=== PATIENT | female | born 1975 | race African-American/Black ===

== ENCOUNTER 2016-08-13 21:42 | Emergency (ER) | payer MEDICAID ==
[~2016-08-13] VITALS: Ht 165.1 cm; Wt 98.9 kg
[~2016-08-13 21:42] MED LIST: ABILIFY20 MG ORAL; ADVAIR 250-501 EACH INH; ALBUTEROL SULF8.5 GM INH; ATIVAN0.5 MG ORAL; AZITHROMYCIN250 MG ORAL; CIPROFLOXACIN500 M2 ORAL; CYCLOBENZAPRINE10 MG ORAL; HYDROCHLOROTHIA25 MG ORAL; IBUPROFEN200 MG ORAL; IBUPROFEN600 MG ORAL; LOMOTIL TABLET1 EAC1 PO; MACROBID100 MG ORAL; NITROSTAT0.4 M2 SL; NORCO 10/3251 EA ORAL; NORCO1 E1 ORAL; PEPCID20 MG ORAL; PREDNISONE10 MG ORAL; PROMETHAZI6.25 MG/1 ORAL; PROMETHAZINE-C118 M1 ORAL; PROTONIX40 MG ORAL; PROVENTIL HFA6.7 G1 INH; QUETIAPINE FUM200 MG ORAL; QVAR7.3 GM INH; ROBAXIN500 MG PO; SEROQUEL200 MG ORAL; TRAZODONE HCL150 MG ORAL; TYLENOL325 MG ORAL; TYLENOL650 MG/20. ORAL; ZOFRAN ODT4 MG ORAL; ZYRTEC10 MG ORAL
[2016-08-13 22:13] VITALS: BP 109/77
--- NOTE | 2016-08-13 22:14 | Emergency Room Report ---
History of Present Illness General Chief Complaint: General Complaint Source: Patient Present Illness [facility] This is a 41-year-old female with history of hypertension and CHF. She said she has CHF even though she was admitted here before and had a normal echocardiogram and normal BMP. She presents with chief complaint of tingling in her fingers and feet. Also with chest pain and shortness of breath for the last 2 days. Complaining of generalized pain. Pain is 10 out of 10. No nausea no vomiting. Nothing made it better and nothing made it worse. Admit to using cocaine 2 days ago. No other complaint. Allergies: Coded Allergies: PENICILLINS (Verified Allergy, Unknown, 09/23/15) Patient History Past Medical History: see triage record, old chart reviewed Past Surgical History: other Pertinent Family History: none Social History: Reports: drug use, smoking Last Menstrual Period: 2003 Now: No Immunizations: other Reviewed Nursing Documentation: PMH: Agreed, PSxH: Agreed Nursing Documentation-PMH Past Medical History: No History, Except For Hx Hypertension: Yes Hx Asthma: Yes Hx Cancer: Yes - BREAST CANCER Hx Gastrointestinal Problems: No Hx Neurological Problems: No Review of Systems Eye: Denies: blurred vision, eye pain ENT: Denies: ear pain, nose congestion, throat swelling Respiratory: Reports: shortness of breath, Denies: cough Cardiovascular: Reports: chest pain, Denies: palpitations Gastrointestinal: Denies: abdominal pain, diarrhea, nausea, vomiting Musculoskeletal: Denies: back pain, joint pain Skin: Denies: rash Neurological: Denies: headache, numbness Endocrine: Denies: increased thirst, increased urine Hematologic/Lymphatic: Denies: easy bruising All Other Systems: negative except mentioned in HPI Physical Exam Vital Signs Date Time Temp Pulse Resp B/P Pulse Ox O2 Delivery O2 Flow Rate FiO2 08/13/16 21:57 97.3 111 16 106/75 97 Room Air vitals with tachycardia Sp02 EP Interpretation: reviewed, normal General Appearance: well appearing, no apparent distress, alert, obese Head: normocephalic, atraumatic Eyes: bilateral eye EOMI, bilateral eye PERRL ENT: hearing grossly normal, normal pharynx Neck: full range of motion, supple, no meningismus Respiratory: chest non-tender, lungs clear, normal breath sounds Cardiovascular #1: regular rate, rhythm - hr 96, no murmur Gastrointestinal: normal bowel sounds, non tender, no mass, no organomegaly, no bruit, non-distended Musculoskeletal: back normal, gait/station normal, normal range of motion Neurologic: alert, oriented x3 Psychiatric: mood/affect normal Skin: warm/dry Medical Decision Making Diagnostic Impression: Primary Impression: Paresthesia and pain of both upper extremities Additional Impressions: Non-cardiac chest pain Cocaine abuse Amphetamine abuse UTI (urinary tract infection) Qualified Codes: N30.00 - Acute cystitis without hematuria Proteinuria Obesity (BMI 30-39.9) ER Course Is present with numbness. Most likely hyperventilation versus anxiety/panic attack from drug abuse. No evidence of ACS, PE, dissection. He sleeping comfortably. No evidence of CHF. Lab Results Impression labs unremarkable EKG Diagnostic Results Rate: normal, tachycardiac Rhythm: NSR ST Segments: no acute changes Rhythm Strip Diag. Results EP Interpretation: yes Rate: 96 Rhythm: NSR, no PVC's, no ectopy Chest X-Ray Diagnostic Results EP Interpretation: Yes Findings: no consolidation, no effusion, no pneumothorax, no acute cardiopulmonary disease Number of Views: 1 Last Vital Signs Date Time Temp Pulse Resp B/P Pulse Ox O2 Delivery O2 Flow Rate FiO2 08/13/16 21:57 97.3 111 16 106/75 97 Room Air Status: improved Disposition: HOME, SELF-CARE Condition: Stable Scripts Cephalexin* (KEFLEX*) 500 Mg Capsule 500 MG ORAL TID, #21 CAP 0 Refills Prov: FUAD BABB M.D. 08/13/16 Additional Instructions: Stop using drugs. Followup your Dr. in 2-3 days. Return if symptom worsen. FUAD BABB M.D. Aug 13, 2016 22:14
[2016-08-13] MEDS ORDERED: Ketorolac 30mg Inj IV ONE (22:15)
[2016-08-13 22:55] LABS: BASOPHILS % (AUTO) 0.7 % (0.0-2.0); EOSINOPHILS % (AUTO) 4.3 % (0.0-3.0); LYMPHOCYTES % (AUTO) 18.2 % (20.0-45.0); MEAN CORPUSCULAR HEMOGLOBIN 28.6 PG (27.0-31.0); MEAN CORPUSCULAR HGB CONC 32.8 G/DL (32.0-36.0); MEAN CORPUSCULAR VOLUME 87 FL (80-99); MEAN PLATELET VOLUME 6.8 FL (6.5-10.1); MONOCYTES % (AUTO) 4.1 % (1.0-10.0); NEUTROPHILS % (AUTO) 72.6 % (45.0-75.0); PLATELET COUNT 377 K/UL (150-450); RED BLOOD COUNT 4.01 M/UL (4.20-5.40); RED CELL DISTRIBUTION WIDTH 12.8 % (11.6-14.8); WHITE BLOOD COUNT 9.2 K/UL (4.8-10.8)
[2016-08-13 23:00] LABS: APPEARANCE,URINE CLEAR; KETONES,URINE 4+ (NEGATIVE); LEUKOCYTE ESTERASE ,URINE 1+ (NEGATIVE); NITRITE,URINE POSITIVE (NEGATIVE); PH,URINE 6 (4.5-8.0); PROTEIN,URINE 2+ (NEGATIVE); UROBILINOGEN,URINE 8 MG/DL (0.0-1.0)
[2016-08-13 23:07] LABS: AMORPHOUS SEDIMENT,UR FEW /LPF; BACTERIA,URINE MODERATE /HPF; ICTOTEST NEGATIVE; SQUAMOUS EPITHELIAL CELL,UR FEW /LPF (NONE/OCC)
[2016-08-13] MEDS ORDERED: cefTRIAXone 1 GM in NS 55 ML IVPB ONE (23:15)
[2016-08-13 23:26] LABS: TROPONIN I < 0.30 ng/mL (<=0.30)
[2016-08-13 23:29] LABS: ALANINE AMINOTRANSFERASE 50 U/L (3-33); ANION GAP 19 (5-15); ASPARTATE AMINO TRANSFERASE 49 U/L (5-40); CALCIUM 8.7 mg/dL (8.6-10.2); CARBON DIOXIDE 27 mEQ/L (20-30); CHLORIDE 96 mEQ/L (98-107); GLOMERULAR FILTRATION RATE > 60 mL/min (>60); HEMOLYSIS 39; POTASSIUM 3.5 mEQ/L (3.4-4.9); SODIUM 142 mEQ/L (135-145); TOTAL PROTEIN 7.1 g/dL (6.6-8.7)
[2016-08-13 23:39] LABS: CKMB 4.7 ng/mL (< 3.8)
[2016-08-13] MEDS ORDERED: KEFLEX500 MG ORAL (23:58)
[2016-08-14 00:23] VITALS: BP 122/85
[2016-08-14 00:35] VITALS: BP 122/85
--- NOTE | 2016-08-14 10:18 | Diagnostic Imaging Report ---
Indication: Dyspnea Comparison: 03/04/16 A single view chest radiograph was obtained. Findings: No definite infiltrate or pulmonary vascular congestion identified. The heart is enlarged. The bones are osteopenic. Impression: No acute disease
--- NOTE | 2016-08-17 23:45 | Cardiology Report ---
APPROVED REPORT EKG Measurement Heart [id number] Sinus tachycardia Possible Left atrial enlargement Nonspecific T wave abnormality Prolonged QT Abnormal ECG
== END 2016-08-14 00:35 | disposition home or self-care (01) ==
LOC: EMR 22:30
DX: R07.89 Other chest pain (principal); F15.10 Other stimulant abuse, uncomplicated; F14.10 Cocaine abuse, uncomplicated; N30.00 Acute cystitis without hematuria; R80.9 Proteinuria, unspecified; E66.9 Obesity, unspecified; Z68.36 Body mass index [BMI] 36.0-36.9, adult; Z88.0 Allergy status to penicillin; I10 Essential (primary) hypertension; J45.909 Unspecified asthma, uncomplicated; Z85.3 Personal history of malignant neoplasm of breast; F17.200 Nicotine dependence, unspecified, uncomplicated
CPT/HCPCS: 36415; 71010; 80053; 80300; 81003; 81025; 82550; 82553; 83880; 84484; 85025; 87086; 93005; 96360; 96374; 99284; J0696; J1885

== ENCOUNTER 2016-10-03 19:09 | Emergency (ER) | payer MEDICAID ==
[~2016-10-03] VITALS: Ht 162.6 cm; Wt 133.4 kg
[~2016-10-03 19:09] MED LIST changes: +KEFLEX500 MG ORAL
[2016-10-03 19:26] VITALS: BP 149/94
[2016-10-03] MEDS ORDERED: Ketorolac 30mg Inj IV ONE (19:45)
[2016-10-03 21:45] LABS: BASOPHILS % (AUTO) 0.9 % (0.0-2.0); EOSINOPHILS % (AUTO) 4.9 % (0.0-3.0); LYMPHOCYTES % (AUTO) 29.4 % (20.0-45.0); MEAN CORPUSCULAR HEMOGLOBIN 28.9 PG (27.0-31.0); MEAN CORPUSCULAR VOLUME 90 FL (80-99); MEAN PLATELET VOLUME 6.9 FL (6.5-10.1); MONOCYTES % (AUTO) 5.7 % (1.0-10.0); NEUTROPHILS % (AUTO) 59.1 % (45.0-75.0); PLATELET COUNT 375 K/UL (150-450); RED BLOOD COUNT 3.94 M/UL (4.20-5.40); RED CELL DISTRIBUTION WIDTH 13.6 % (11.6-14.8); WHITE BLOOD COUNT 8.3 K/UL (4.8-10.8)
[2016-10-03 21:54] LABS: ALANINE AMINOTRANSFERASE 41 U/L (3-33); ANION GAP 13 (5-15); ASPARTATE AMINO TRANSFERASE 19 U/L (5-40); CALCIUM 8.7 mg/dL (8.6-10.2); CARBON DIOXIDE 28 mEQ/L (20-30); CHLORIDE 102 mEQ/L (98-107); CREATININE 0.9 mg/dL (0.5-0.9); GLOMERULAR FILTRATION RATE > 60 mL/min (>60); HEMOLYSIS 3; SODIUM 143 mEQ/L (135-145); TOTAL PROTEIN 6.8 g/dL (6.6-8.7)
[2016-10-03 21:55] LABS: TROPONIN I < 0.30 ng/mL (<=0.30)
[2016-10-03 22:05] LABS: CKMB < 1.5 ng/mL (< 3.8)
[2016-10-03] MEDS ORDERED: CYCLOBENZAPRINE10 MG ORAL (22:19)
[2016-10-03] MEDS ORDERED: IBUPROFEN600 MG ORAL (22:19)
[2016-10-03 22:39] VITALS: BP 144/73
--- NOTE | 2016-10-03 22:46 | Emergency Room Report ---
History of Present Illness General Chief Complaint: Chest Pain Source: Patient, Medical Record Present Illness HPI 41-year-old female presents ED for evaluation. Patient states she is having generalized bodyaches muscle spasms. Notes pain all over including her chest. Denies shortness of breath. Pain is a 7/10, dull, nonradiating. No other aggravating or leading factors. [place] [facility] been here multiple times for similar episodes a muscle spasms and chest pain. Patient is previously had significant drug use. Patient denies any drugs at this time. No other aggravating or relieving factors. Denies any other associated symptoms Allergies: Coded Allergies: PENICILLINS (Verified Allergy, Unknown, 09/23/15) Patient History Past Medical History: HTN, asthma Past Surgical History: none Pertinent Family History: none Social History: Reports: drug use, Denies: alcohol use, smoking Now: No Immunizations: UTD Reviewed Nursing Documentation: PMH: Agreed, PSxH: Agreed Nursing Documentation-PMH Past Medical History: No History, Except For Hx Hypertension: Yes Hx Asthma: Yes Hx Cancer: Yes - BREAST CANCER Hx Gastrointestinal Problems: No Hx Neurological Problems: No Review of Systems All Other Systems: negative except mentioned in HPI Physical Exam Vital Signs Date Time Temp Pulse Resp B/P Pulse Ox O2 Delivery O2 Flow Rate FiO2 10/03/16 19:16 98.2 91 16 149/94 99 Room Air Sp02 EP Interpretation: reviewed, normal General Appearance: no apparent distress, alert, GCS 15, non-toxic, obese Head: normocephalic, atraumatic Eyes: bilateral eye PERRL, bilateral eye normal inspection ENT: hearing grossly normal, normal pharynx, no angioedema, normal voice Neck: full range of motion, supple/symm/no masses Respiratory: lungs clear, normal breath sounds, speaking full sentences, other - reproducible chest wall pain Cardiovascular #1: regular rate, rhythm, no edema Cardiovascular #2: 2+ carotid (R), 2+ carotid (L), 2+ radial (R), 2+ radial (L) , 2+ dorsalis pedis (R), 2+ dorsalis pedis (L) Gastrointestinal: normal bowel sounds, non tender, soft, non-distended, no guarding, no rebound Rectal: deferred Genitourinary: normal inspection, no CVA tenderness Musculoskeletal: back normal, gait/station normal, normal range of motion, non- tender Neurologic: alert, oriented x3, responsive, motor strength/tone normal, sensory intact, speech normal Psychiatric: judgement/insight normal, memory normal, mood/affect normal, no suicidal/homicidal ideation Reflexes: 3+ bicep (R), 3+ bicep (L), 3+ tricep (R), 3+ tricep (L), 3+ knee (R) , 3+ knee (L) Skin: normal color, no rash, warm/dry, well hydrated Lymphatic: no adenopathy Medical Decision Making Diagnostic Impression: Primary Impression: Muscle strain Additional Impression: Cocaine abuse ER Course Hospital Course 41-year-old female presents ED complaining of reproducible chest wall pain, bodyaches Differential diagnoses include: Rib fracture, HI/unstable angina, contusion, muscle strain Clinical course Patient placed on stretcher. After initial history and physical I ordered labs , EKG, chest x-ray, Toradol. labs reviewed- all electrolytes normal, troponins negative, no leukocytosis, hemoglobin/hematocrit stable, cocaine + EKg- NSR no acute process Chest x-ray-no cardiomegaly, no rib fracture, no pneumothorax, no acute process clinical findings consistent with muscle strain/costochondritis. Reassurance given. Patient given Toradol for pain. Upon reassessment patient states pain is improved. Patient continues to denies any drug use I. I feel this is a highly complex case requiring extensive working including EKG/Rhythm strip, Xray/CT/US, Blood/urine lab work, repeat exams while in ED, and administration of strong opiates/narcotics for pain control, admission to hospital or close patient follow up. Diagnosis - muscle strain, cocaine abuse Stable and discharged to home with prescription for Motrin, flexeril. Instructed to followup with PMD. Return to ED if symptoms recur or worsen Labs Test 10/03/16 19:23 10/03/16 21:26 Urine Opiates Screen Negative (NEGATIVE) Urine Barbiturates Screen Negative (NEGATIVE) Phencyclidine (PCP) Screen Negative (NEGATIVE) Urine Amphetamines Screen Negative (NEGATIVE) Urine Benzodiazepines Screen Negative (NEGATIVE) Urine Cocaine Screen Positive (NEGATIVE) Urine Marijuana (THC) Screen Positive (NEGATIVE) White Blood Count 8.3 K/UL (4.8-10.8) Red Blood Count 3.94 M/UL (4.20-5.40) Hemoglobin 11.4 G/DL (12.0-16.0) Hematocrit 35.7 % (37.0-47.0) Mean Corpuscular Volume 90 FL (80-99) Mean Corpuscular Hemoglobin 28.9 PG (27.0-31.0) Mean Corpuscular Hemoglobin Concent 32.0 G/DL (32.0-36.0) Red Cell Distribution Width 13.6 % (11.6-14.8) Platelet Count 375 K/UL (150-450) Mean Platelet Volume 6.9 FL (6.5-10.1) Neutrophils (%) (Auto) 59.1 % (45.0-75.0) Lymphocytes (%) (Auto) 29.4 % (20.0-45.0) Monocytes (%) (Auto) 5.7 % (1.0-10.0) Eosinophils (%) (Auto) 4.9 % (0.0-3.0) Basophils (%) (Auto) 0.9 % (0.0-2.0) Sodium Level 143 mEQ/L (135-145) Potassium Level 4.0 mEQ/L (3.4-4.9) Chloride Level 102 mEQ/L (98-107) Carbon Dioxide Level 28 mEQ/L (20-30) Anion Gap 13 (5-15) Blood Urea Nitrogen 12 mg/dL (7-23) Creatinine 0.9 mg/dL (0.5-0.9) Estimat Glomerular Filtration Rate > 60 mL/min (>60) Glucose Level 170 mg/dL (74-106) Calcium Level 8.7 mg/dL (8.6-10.2) Total Bilirubin < 0.2 mg/dL (0.0-1.2) Aspartate Amino Transf (AST/SGOT) 19 U/L (5-40) Alanine Aminotransferase (ALT/SGPT) 41 U/L (3-33) Alkaline Phosphatase 70 U/L (35-104) Total Creatine Kinase 278 U/L (26-140) Creatine Kinase MB < 1.5 ng/mL (< 3.8) Creatine Kinase MB Relative Index Troponin I < 0.30 ng/mL (<=0.30) Pro-B-Type Natriuretic Peptide 165 pg/mL (0-125) Total Protein 6.8 g/dL (6.6-8.7) Albumin 3.5 g/dL (3.5-5.2) Globulin 3.3 g/dL Albumin/Globulin Ratio 1.0 (1.0-2.7) EKG Diagnostic Results Rate: normal Rhythm: NSR ST Segments: no acute changes ASA given to the pt in ED: No Rhythm Strip Diag. Results EP Interpretation: yes Rhythm: NSR, no PVC's, no ectopy Chest X-Ray Diagnostic Results EP Interpretation: Yes Findings: no consolidation, no effusion, no pneumothorax, no acute cardiopulmonary disease Number of Views: 1 Last Vital Signs Date Time Temp Pulse Resp B/P Pulse Ox O2 Delivery O2 Flow Rate FiO2 10/03/16 21:59 98.2 10/03/16 19:26 91 16 Room Air 10/03/16 19:26 149/94 99 Status: improved Disposition: HOME, SELF-CARE Condition: Stable Scripts Cyclobenzaprine Hcl* (FLEXERIL*) 10 Mg Tablet 10 MG ORAL TID Y for Muscle Spasm, #20 TAB Prov: MANDI JUÁREZ M.D. 10/03/16 Ibuprofen* (MOTRIN*) 600 Mg Tablet 600 MG ORAL Q8H Y for For Pain, #30 TAB 0 Refills Prov: MANDI JUÁREZ M.D. 10/03/16 Referrals: [facility]ERR[facility] (PCP) Patient Instructions: Nonspecific Chest Pain MANDI JUÁREZ M.D. Oct 03, 2016 22:45
--- NOTE | 2016-10-04 12:20 | Diagnostic Imaging Report ---
Indication: Chest pain Technique: One view of the chest Comparison: 08/13/2016 Findings: Lungs and pleural spaces are clear. Heart size is normal. No significant change Impression: No acute process
== END 2016-10-03 22:39 | disposition home or self-care (01) ==
LOC: EMR 19:46
DX: T14.8 Other injury of unspecified body region (principal); F14.10 Cocaine abuse, uncomplicated; R07.9 Chest pain, unspecified; J45.909 Unspecified asthma, uncomplicated; I10 Essential (primary) hypertension; Z85.3 Personal history of malignant neoplasm of breast; Z88.0 Allergy status to penicillin; X58.XXXA Exposure to other specified factors, initial encounter; Y92.9 Unspecified place or not applicable; Y99.8 Other external cause status
CPT/HCPCS: 36415; 71010; 80053; 80300; 82550; 82553; 83880; 84484; 85025; 93005; 96374; 99284; J1885

== ENCOUNTER 2018-10-23 08:54 | Emergency (ER) | payer MEDICAID ==
[~2018-10-23] VITALS: Ht 162.6 cm; Wt 106.6 kg
--- NOTE | 2018-10-23 09:05 | NUR ---
ED Nurse Note: Patient walked into ED c/o non radiating chest pain on the center of her chest for 2 day. patient reports history of HTN, but has been noncompliant with her BP medication for 5 months. patient reports her "muscle spasm pain" is coming back too. patient has changed into hospital gown. patient is alert awake x4 ambulatory breathing unlabored and even.
[2018-10-23 09:25] VITALS: BP 110/91
[2018-10-23] MEDS ORDERED: Furosemide 40mg tab ORAL ONE (10:30)
--- NOTE | 2018-10-23 11:12 | NUR ---
ED Nurse Note: cxr done at bedside patient is ambulatory without assistance, uses restroom without assistance
[2018-10-23] MEDS ORDERED: FUROSEMIDE40 MG ORAL (11:26)
[2018-10-23 11:40] VITALS: BP 109/82
--- NOTE | 2018-10-23 11:42 | Diagnostic Imaging Report ---
Indication: Chest pain Comparison: 10/03/2016 A single view chest radiograph was obtained. Findings: Pulmonary vascular congestion suspected with cardiomegaly. Lung volumes are low. IMPRESSION: Suspected CHF
[2018-10-23 11:45] VITALS: BP 109/82
--- NOTE | 2018-10-23 11:45 | NUR ---
ER DISCHARGE NOTE: Patient is cleared to be discharged per HARPREET Mcdermott, pt is aox4, on room air, with stable vital signs. pt was given dc and prescription instructions, pt was able to verbalize understanding, pt id band removed without complications. pt is able to ambulate with steady gait. pt took all belongings.
--- NOTE | 2018-10-23 14:25 | Emergency Room Report ---
History of Present Illness General Chief Complaint: Chest Pain Source: Patient Present Illness HPI Patient present with several different complaints reports that she has been off her medication which includes her water pill and has noticed increased swelling in her legs patient complained of midsternal chest pain that has been intermittent over the past several months also complains of right elbow and knee pain secondary to her arthritis Denies any recent trauma denies any fevers or chills Denies any vomiting or diarrhea Denies any focal weakness denies any active chest pain at this time Allergies: Coded Allergies: PENICILLINS (Verified Allergy, Unknown, 09/23/15) Patient History Past Medical History: see triage record Pertinent Family History: none Last Menstrual Period: 2004 Now: No Reviewed Nursing Documentation: PMH: Agreed; PSxH: Agreed Nursing Documentation-PMH Past Medical History: No History, Except For Hx Hypertension: Yes Hx Asthma: Yes Hx Cancer: Yes - BREAST CANCER Hx Gastrointestinal Problems: No Hx Neurological Problems: No Review of Systems All Other Systems: negative except mentioned in HPI Physical Exam Vital Signs Date Time Temp Pulse Resp B/P (MAP) Pulse Ox O2 Delivery O2 Flow Rate FiO2 10/23/18 08:59 98.1 89 20 94 Room Air 10/23/18 09:25 110/91 10/23/18 09:26 21 Sp02 EP Interpretation: reviewed, normal General Appearance: well appearing, no apparent distress Head: normocephalic, atraumatic Eyes: bilateral eye PERRL, bilateral eye EOMI ENT: hearing grossly normal, normal pharynx, TMs + canals normal, uvula midline Neck: full range of motion, supple, no meningismus, no bony tend Respiratory: lungs clear, normal breath sounds, no rhonchi, no respiratory distress, no retraction, no accessory muscle use Cardiovascular #1: normal peripheral pulses, regular rate, rhythm, no gallop, no JVD, no murmur Gastrointestinal: normal bowel sounds, non tender, soft, no mass, no organomegaly, non-distended, no guarding, no hernia, no pulsatile mass, no rebound Genitourinary: no CVA tenderness Musculoskeletal: normal inspection Neurologic: oriented x3, responsive, bisque grader III-XII nml as tested, motor strength/ tone normal, sensory intact Psychiatric: mood/affect normal Skin: warm/dry, other - Mild edema is noted bilaterally Lymphatic: normal inspection, no adenopathy Medical Decision Making Diagnostic Impression: Primary Impression: chest pain Additional Impression: Arthralgia ER Course Given the patient's presentation multiple differentials and consideration EKG does not show any acute changes Patient resting comfortably on the bus monitor x-ray also within normal limits Patient was provided with diuretics Does not show evidence of acute CHF and patient requires improved outpatient care He is on that x-ray is read by radiology as suspicion of CHF patient however is not short of breath, likely there is some body habitus findings with the x-ray continues to saturate well on room air, Chest X-Ray Diagnostic Results Chest X-Ray Diagnostic Results : Chest X-Ray Ordered: Yes # of Views/Limited/Complete: 1 View Indication: Chest Pain EP Interpretation: Yes Interpretation: no consolidation, no effusion, no pneumothorax Impression: No acute disease Electronically Signed by: Dashawn Mcdermott DO Last Vital Signs Date Time Temp Pulse Resp B/P (MAP) Pulse Ox O2 Delivery O2 Flow Rate FiO2 10/23/18 11:45 98.1 82 20 109/82 99 Room Air 21 Status: improved Disposition: HOME, SELF-CARE Condition: Improved Scripts Furosemide* (LASIX*) 40 Mg Tablet 40 MG ORAL DAILY, #10 TAB Prov: Dashawn Mcdermott DO 10/23/18 Referrals: NOT CHOSEN [facility],REFERRING (PCP) [facility] Arnie Perry. [facility] Patient Instructions: Nonspecific Chest Pain, Edema, [id number] Additional Instructions: Patient is provided with the discharge instructions notified to follow up with primary doctor in the next 2-3 days otherwise return to the er with any worsening symptoms. Please note that this report is being documented using [employer] technology. This can lead to erroneous entry secondary to incorrect interpretation by the dictating instrument. Dashawn Mcdermott DO October 23, 2018 14:25
--- NOTE | 2018-10-24 14:43 | Cardiology Report ---
APPROVED REPORT EKG Measurement Heart [id number] [id number] Normal sinus rhythm Cannot rule out Anterior infarct, age undetermined Prolonged QT Abnormal ECG
== END 2018-10-23 11:45 | disposition home or self-care (01) ==
LOC: EMR 09:30
DX: R07.9 Chest pain, unspecified (principal); I10 Essential (primary) hypertension; M25.521 Pain in right elbow; M25.561 Pain in right knee; Z85.3 Personal history of malignant neoplasm of breast; Z88.0 Allergy status to penicillin; M19.90 Unspecified osteoarthritis, unspecified site
CPT/HCPCS: 71045; 93005; 99283

== ENCOUNTER 2018-11-08 19:52 | Inpatient (IN) | payer MEDICAID ==
[~2018-11-08] VITALS: Ht 162.6 cm; Wt 144.0 kg
[~2018-11-08 19:52] MED LIST changes: +FUROSEMIDE40 MG ORAL
[2018-11-08 20:00] VITALS: BP 128/76
--- NOTE | 2018-11-08 20:00 | NUR ---
ED Nurse Note: Pt arrived ambulatory into ED for complaint of chest pain located on sternum. Pt describes pain as a 7/10, feeling like pressure and tightness, and non-radiating. Pt states she has not been taking care of herself or taking any medications since June.
--- NOTE | 2018-11-08 20:27 | Emergency Room Report ---
History of Present Illness General Chief Complaint: Chest Pain Source: Patient Present Illness HPI This is a 43-year-old female with a history of congestive heart failure, hypertension, who has been noncompliant with all of her medications since June. She states that she recently moved to [place] and follows a doctor over there. She complains of chest pain that started this morning. She took 3 nitroglycerin with no relief. He states that the chest pain eventually went away prior to arrival. She denies any shortness of breath. No exacerbating or relieving factor. She denies any diaphoresis. She also complains of chronic right leg pain. No swelling. She also admits to doing cocaine recently. Allergies: Coded Allergies: PENICILLINS (Verified Allergy, Unknown, 09/23/15) Patient History Past Medical History: see triage record Past Surgical History: none Pertinent Family History: HTN Social History: Reports: smoking, drug use Last Menstrual Period: July 2018 Now: No Nursing Documentation-PMH Past Medical History: No History, Except For Hx Hypertension: Yes Hx Asthma: Yes Hx Cancer: Yes - BREAST CANCER Hx Gastrointestinal Problems: No Hx Neurological Problems: No Review of Systems All Other Systems: negative except mentioned in HPI Physical Exam Vital Signs Date Time Temp Pulse Resp B/P (MAP) Pulse Ox O2 Delivery O2 Flow Rate FiO2 11/08/18 19:55 99.1 107 18 128/76 (93) 94 Room Air General Appearance: well appearing, no apparent distress Head: normocephalic, atraumatic ENT: hearing grossly normal, normal voice Neck: full range of motion, supple Respiratory: no respiratory distress, speaking full sentences Cardiovascular #1: regular rate, rhythm, no edema Gastrointestinal: non tender, soft Musculoskeletal: normal inspection, no calf tenderness Neurologic: alert, oriented x3, normal gait Psychiatric: normal inspection, mood/affect normal Skin: no rash Medical Decision Making EKG Diagnostic Results EKG Time: 20:26 Rate: normal Rhythm: NSR ST Segments: no acute changes ASA given to the pt in ED: Yes Last Vital Signs Date Time Temp Pulse Resp B/P (MAP) Pulse Ox O2 Delivery O2 Flow Rate FiO2 11/08/18 19:55 99.1 107 18 128/76 (93) 94 Room Air Signed Out To: SUE Mclaughlin November 08, 2018 20:27
[2018-11-08] MEDS ORDERED: Aspirin Baby 81mg ORAL ONE (20:30)
[2018-11-08] MEDS ORDERED: Nitroglycerin 2% oint pkt TOPIC ONE ×2 (20:30→20:35)
[2018-11-08 20:41] LABS: BASOPHILS % (AUTO) 1.4 % (0.0-2.0); EOSINOPHILS % (AUTO) 1.3 % (0.0-3.0); HEMATOCRIT 37.2 % (37.0-47.0); HEMOGLOBIN 12.8 G/DL (12.0-16.0); LYMPHOCYTES % (AUTO) 25.7 % (20.0-45.0); MEAN CORPUSCULAR VOLUME 82 FL (80-99); MONOCYTES % (AUTO) 5.9 % (1.0-10.0); NEUTROPHILS % (AUTO) 65.7 % (45.0-75.0); PLATELET COUNT 410 K/UL (150-450); RED BLOOD COUNT 4.53 M/UL (4.20-5.40); RED CELL DISTRIBUTION WIDTH 12.5 % (11.6-14.8); WHITE BLOOD COUNT 11.1 K/UL (4.8-10.8)
[2018-11-08 20:54] LABS: ANION GAP 8 mmol/L (5-15); BLOOD UREA NITROGEN 23 mg/dL (7-18); CALCIUM 9.4 MG/DL (8.5-10.1); CARBON DIOXIDE 29 MMOL/L (21-32); CHLORIDE 100 MMOL/L (98-107); CREATININE 1.2 MG/DL (0.55-1.30); POTASSIUM 4.5 MMOL/L (3.5-5.1); SODIUM 137 MMOL/L (136-145)
[2018-11-08 21:04] LABS: ALANINE AMINOTRANSFERASE 31 U/L (12-78); ALBUMIN 3.3 G/DL (3.4-5.0); ALBUMIN/GLOBULIN RATIO 0.6 (1.0-2.7); ALKALINE PHOSPHATASE 81 U/L (46-116); ASPARTATE AMINO TRANSFERASE 28 U/L (15-37); BILIRUBIN,TOTAL 0.4 MG/DL (0.2-1.0)
[2018-11-08] MEDS ORDERED: Enalaprilat 2.5mg/2ml Inj IV PRN (21:30)
[2018-11-08] MEDS ORDERED: Nitroglycerin Subl 0.4mg tab SL PRN (21:30)
[2018-11-08] MEDS ORDERED: dilTIAZem HCl 25mg/5ml Inj IV PRN (21:30)
[2018-11-08] MEDS ORDERED: Albuterol/Ipratropium 3ml neb HHN PRN (21:30)
[2018-11-08] MEDS ORDERED: Miralax 17gm pkt ORAL PRN (21:30)
[2018-11-08] MEDS ORDERED: Morphine Sulfate 2mg/ml Inj(IV/IM USE ONLY) IVP PRN (21:30)
--- NOTE | 2018-11-08 21:50 | NUR ---
ED Nurse Note: Report given to LAY [place]. Pt to transfer to telemetry unit for observation. All belongings taken with pt along with belongings list. Pt A/Ox4, showing no signs of acute distress. VSS. Pt accompanied by DEMI Miller and RN and connected to quality assurance monitor final.
--- NOTE | 2018-11-08 22:00 | NUR ---
NURSE NOTES: Received patient from ER, patient safely transferred to 206-2. Bed locked, in low position, side rails up x 2, call light within reach. Oriented patient to staff and room. Awake, alert and oriented x 4, no c/o pain. Calm but talkative and cooperative. On room air, no signs of respiratory distress. Vitals: 98.1-458-41-128/95-94%. 22 gauge piv on left thumb, intact,patent. Patient is ambulatory. No pressure injuries noted. Patient endorses some scabs on her right breast and bilateral upper extremities. No bleeding noted. Per patient, she has a history of paranoid schizophrenia currently experiencing visual hallucinations but states she is aware that they are not real. She also endorses history of SI/HI but does not have any currently.
[2018-11-08 22:20] VITALS: BP 128/95
[2018-11-08] MEDS ORDERED: Enalaprilat 1.25mg/ml Inj IV PRN (22:30)
[2018-11-08] MEDS: Albuterol 90mcg Inhaler 8gm INH SCH (23:00)
[2018-11-09] VITALS: BP 136/101
[2018-11-09] MEDS: Albuterol 90mcg Inhaler 8gm INH SCH ×4 (03:00→14:49)
[2018-11-09 04:00] VITALS: BP 134/99
[2018-11-09 07:27] LABS: BASOPHILS % (AUTO) 1.6 % (0.0-2.0); EOSINOPHILS % (AUTO) 1.5 % (0.0-3.0); HEMATOCRIT 36.5 % (37.0-47.0); LYMPHOCYTES % (AUTO) 23.2 % (20.0-45.0); MEAN CORPUSCULAR VOLUME 86 FL (80-99); MONOCYTES % (AUTO) 6.2 % (1.0-10.0); NEUTROPHILS % (AUTO) 67.6 % (45.0-75.0); PLATELET COUNT 381 K/UL (150-450); RED BLOOD COUNT 4.24 M/UL (4.20-5.40); RED CELL DISTRIBUTION WIDTH 13.2 % (11.6-14.8); WHITE BLOOD COUNT 9.9 K/UL (4.8-10.8)
--- NOTE | 2018-11-09 07:32 | NUR ---
HAND-OFF: Report given to Stephanie CHUN. Patient in stable condition, plan of care endorsed.
[2018-11-09 07:38] LABS: INR 0.9 (0.9-1.1)
--- NOTE | 2018-11-09 07:47 | NUR ---
NURSE NOTES: Received pt from LAY [place]. pt A/O X ,resting in bed with open eyes, no acute distress,no c/o pain. bed locked rails up x2, @ lowest position, call light within reach. iv intact and patent. will continue to monitor.
[2018-11-09 08:09] LABS: CHOLESTEROL 182 MG/DL (< 200); HDL CHOLESTEROL 79 MG/DL (40-60); TRIGLYCERIDES 63 MG/DL (30-150)
[2018-11-09 08:24] VITALS: BP 159/96
[2018-11-09] MEDS ORDERED: Aspirin Baby 81mg ORAL SCH (09:00)
[2018-11-09] MEDS ORDERED: TraZODone 100mg tab ORAL SCH (09:00)
[2018-11-09] MEDS ORDERED: ARIPiprazole 10mg tab ORAL SCH (09:00)
[2018-11-09] MEDS ORDERED: QUEtiapine 200mg tab ORAL SCH (09:00)
[2018-11-09] MEDS ORDERED: Furosemide 40mg tab ORAL SCH (09:00)
[2018-11-09] MEDS ORDERED: Heparin 5000 units/ml inj SUBQ SCH (09:00)
--- NOTE | 2018-11-09 10:09 | NUR ---
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
--- NOTE | 2018-11-09 10:27 | Consultation ---
History of Present Illness General Date patient seen: November 09, 2018 Chief Complaint: Chest Pain Present Illness HPI 43 year old female with hx of obesity, began to experience left chest pain. Chest pain radiated to the left breast. The patient presented to [place] emergency room. An initial troponin level was negative. The patient was admitted for chest pain to rule out acute coronary syndrome. Allergies: Coded Allergies: PENICILLINS (Verified Allergy, Unknown, 09/23/15) Medication History Scheduled Albuterol Sulfate* (Albuterol Sulfate Mdi*), 2 PUFF INH Q4H Aripiprazole* (Abilify*), 20 MG ORAL DAILY, (Reported) Cephalexin* (Keflex*), 500 MG ORAL TID Fluticasone/Salmeterol (Advair 250-50 Diskus), 1 PUFF INH Q12HR, (Reported) Furosemide* (Lasix*), 40 MG ORAL DAILY Hydrochlorothiazide* (Hydrochlorothiazide*), 25 MG ORAL DAILY, (Reported) Ibuprofen (Ibuprofen*), 800 MG ORAL THREE TIMES A DAY, (Reported) Quetiapine Fumarate* (Seroquel*), 300 MG ORAL DAILY, (Reported) Trazodone* (Trazodone*), 300 MG ORAL BID, (Reported) Scheduled PRN Cyclobenzaprine Hcl* (Flexeril*), 10 MG ORAL TID PRN for Muscle Spasm Hydrocodone/Acetaminophen (Hydrocodon-Acetaminophn 10-325), 1 TAB ORAL Q8H PRN for For Pain, (Reported) Ibuprofen* (Motrin*), 600 MG ORAL Q8H PRN for For Pain Miscellaneous Medications Nitroglycerin (Nitrostat), 0.4 MG SL, (Reported) Patient History Healthcare decision maker N Resuscitation status Full Code Advanced Directive on File Past Medical/Surgical History Past Medical/Surgical History: (1) Morbid obesity (2) Substance abuse Review of Systems All Other Systems: negative except mentioned in HPI Physical Exam General Appearance: WD/WN Lines, tubes and drains: peripheral HEENT: normocephalic, atraumatic Neck: non-tender Respiratory/Chest: chest wall non-tender, lungs clear Breasts: no masses Cardiovascular/Chest: normal peripheral pulses, normal rate Abdomen: normal bowel sounds, non tender Extremities: non-tender Skin Exam: normal pigmentation Last 24 Hour Vital Signs Date Time Temp Pulse Resp B/P (MAP) Pulse Ox O2 Delivery O2 Flow Rate FiO2 11/09/18 09:43 Room Air 11/09/18 08:24 98.4 89 20 159/96 (117) 94 11/09/18 07:19 87 17 96 Room Air 21 11/09/18 07:17 85 16 94 Room Air 21 11/09/18 07:16 85 16 96 Room Air 21 11/09/18 04:00 99.1 99 19 134/99 (111) 95 11/09/18 03:54 95 11/09/18 03:37 Room Air 21 11/09/18 03:36 Room Air 21 11/09/18 00:38 Room Air 21 11/09/18 00:36 Room Air 21 11/09/18 00:00 99.7 101 20 136/101 (113) 96 11/08/18 23:45 97 11/08/18 22:20 98.1 114 24 128/95 (106) 94 11/08/18 22:16 Room Air 11/08/18 21:50 98.0 101 22 158/68 98 Room Air 11/08/18 20:37 152/80 11/08/18 20:00 98.8 105 18 128/76 94 Room Air 11/08/18 20:00 107 18 Room Air 11/08/18 19:55 99.1 107 18 128/76 (93) 94 Room Air Laboratory Tests Test 11/08/18 20:30 11/09/18 06:14 White Blood Count 11.1 K/UL (4.8-10.8) H 9.9 K/UL (4.8-10.8) Red Blood Count 4.53 M/UL (4.20-5.40) 4.24 M/UL (4.20-5.40) Hemoglobin 12.8 G/DL (12.0-16.0) 12.0 G/DL (12.0-16.0) Hematocrit 37.2 % (37.0-47.0) 36.5 % (37.0-47.0) L Mean Corpuscular Volume 82 FL (80-99) 86 FL (80-99) Mean Corpuscular Hemoglobin 28.2 PG (27.0-31.0) 28.4 PG (27.0-31.0) Mean Corpuscular Hemoglobin Concent 34.3 G/DL (32.0-36.0) 33.0 G/DL (32.0-36.0) Red Cell Distribution Width 12.5 % (11.6-14.8) 13.2 % (11.6-14.8) Platelet Count 410 K/UL (150-450) 381 K/UL (150-450) Mean Platelet Volume 6.0 FL (6.5-10.1) L 7.2 FL (6.5-10.1) Neutrophils (%) (Auto) 65.7 % (45.0-75.0) 67.6 % (45.0-75.0) Lymphocytes (%) (Auto) 25.7 % (20.0-45.0) 23.2 % (20.0-45.0) Monocytes (%) (Auto) 5.9 % (1.0-10.0) 6.2 % (1.0-10.0) Eosinophils (%) (Auto) 1.3 % (0.0-3.0) 1.5 % (0.0-3.0) Basophils (%) (Auto) 1.4 % (0.0-2.0) 1.6 % (0.0-2.0) Sodium Level 137 MMOL/L (136-145) Potassium Level 4.5 MMOL/L (3.5-5.1) Chloride Level 100 MMOL/L (98-107) Carbon Dioxide Level 29 MMOL/L (21-32) Anion Gap 8 mmol/L (5-15) Blood Urea Nitrogen 23 mg/dL (7-18) H Creatinine 1.2 MG/DL (0.55-1.30) Estimat Glomerular Filtration Rate 58.9 mL/min (>60) Glucose Level 113 MG/DL (74-106) H Calcium Level 9.4 MG/DL (8.5-10.1) Total Bilirubin 0.4 MG/DL (0.2-1.0) Aspartate Amino Transf (AST/SGOT) 28 U/L (15-37) Alanine Aminotransferase (ALT/SGPT) 31 U/L (12-78) Alkaline Phosphatase 81 U/L (46-116) Troponin I 0.000 ng/mL (0.000-0.056) 0.000 ng/mL (0.000-0.056) Pro-B-Type Natriuretic Peptide 149 pg/mL (0-125) H Total Protein 8.5 G/DL (6.4-8.2) H Albumin 3.3 G/DL (3.4-5.0) L Globulin 5.2 g/dL Albumin/Globulin Ratio 0.6 (1.0-2.7) L Prothrombin Time 10.0 SEC (9.30-11.50) Prothromb Time International Ratio 0.9 (0.9-1.1) Activated Partial Thromboplast Time 30 SEC (23-33) C-Reactive Protein, Quantitative 6.5 mg/dL (0.00-0.90) H Triglycerides Level 63 MG/DL (30-150) Cholesterol Level 182 MG/DL (< 200) LDL Cholesterol 95 mg/dL (<100) HDL Cholesterol 79 MG/DL (40-60) H Cholesterol/HDL Ratio 2.3 (3.3-4.4) L Thyroid Stimulating Hormone (TSH) 2.995 uiU/mL (0.358-3.740) Microbiology Date/Time Source Procedure Growth Status 11/09/18 06:40 Rectal Mucosa Received Height (Feet): 5 Height (Inches): 4.00 Weight (Pounds): 317 Medications Current Medications Medications (Trade) Dose Ordered Sig/[place] Route PRN Reason Start Time Stop Time Status Last Admin Dose Admin Acetaminophen (Tylenol) 650 mg Q4H PRN ORAL FEVER 11/08/18 21:30 12/08/18 21:29 Albuterol Sulfate (Proventil MDI) 2 puff Q4HRT INH 11/08/18 23:00 12/08/18 22:59 11/09/18 07:17 Albuterol/ Ipratropium (Albuterol/ Ipratropium) 3 ml Q4H PRN HHN Shortness of Breath 11/08/18 21:30 11/13/18 21:29 Aripiprazole (Abilify) 20 mg DAILY ORAL 11/09/18 09:00 12/09/18 08:59 11/09/18 08:37 Aspirin (ASA) 162 mg DAILY ORAL 11/09/18 09:00 12/09/18 08:59 11/09/18 08:37 Diltiazem HCl (Cardizem) 10 mg EVERY HOUR PRN IV heart rate more than 120, 11/08/18 21:30 12/08/18 21:29 Enalaprilat (Vasotec) 2.5 mg Q6H PRN IV sbp more than 160 11/08/18 22:30 12/08/18 21:29 Furosemide (Lasix) 40 mg DAILY ORAL 11/09/18 09:00 12/09/18 08:59 11/09/18 08:37 Heparin Sodium (Porcine) (Heparin 5000 units/ml) 5,000 units EVERY 12 HOURS SUBQ 11/09/18 09:00 12/09/18 08:59 11/09/18 08:39 Morphine Sulfate (Morphine Sulfate) 2 mg EVERY 4 HOURS PRN IVP severe Pain (Pain Scale 7-10) 11/08/18 21:30 11/15/18 21:29 Nitroglycerin (Ntg) 0.4 mg Q5M PRN SL Prn Chest Pain 11/08/18 21:30 12/08/18 21:29 Ondansetron HCl (Zofran) 4 mg Q6H PRN IVP Nausea & Vomiting 11/08/18 21:30 12/08/18 21:29 Polyethylene Glycol (Miralax) 17 gm DAILYPRN PRN ORAL Constipation 11/08/18 21:30 12/08/18 21:29 Quetiapine Fumarate (SEROquel) 300 mg DAILY ORAL 11/09/18 09:00 12/09/18 08:59 Temazepam (Restoril) 15 mg HSPRN PRN ORAL Insomnia 11/08/18 21:30 11/15/18 21:29 Trazodone HCl (Desyrel) 300 mg BID ORAL 11/09/18 09:00 12/09/18 08:59 Assessment/Plan Problem List: (1) ACS (acute coronary syndrome) ICD Codes: I24.9 - Acute ischemic heart disease, unspecified SNOMED: 034710612 (2) Morbid obesity ICD Codes: E66.01 - Morbid (severe) obesity due to excess calories SNOMED: 229893432 Assessment/Plan: stress test f/u troponin symptomatic treatment Caitlyn Sanford MD November 09, 2018 10:27
--- NOTE | 2018-11-09 11:25 | Diagnostic Imaging Report ---
Indication: Dyspnea Comparison: 10/23/2018 A single view chest radiograph was obtained. Findings: Cardiomediastinal appearance is within normal limits for age. The lungs are clear. Pulmonary vascularity is appropriate. The diaphragmatic contour is smooth and costophrenic angles are sharp. No pleural effusions are identified. The bones are unremarkable. Impression: No acute findings
--- NOTE | 2018-11-09 11:54 | Cardiac Electrophysiology PN ---
Subjective Subjective [id number] Objective Last 24 Hour Vital Signs Date Time Temp Pulse Resp B/P (MAP) Pulse Ox O2 Delivery O2 Flow Rate FiO2 11/09/18 10:51 82 15 96 Room Air 21 11/09/18 10:50 82 15 95 Room Air 21 11/09/18 09:43 Room Air 11/09/18 08:24 98.4 89 20 159/96 (117) 94 11/09/18 07:19 87 17 96 Room Air 21 11/09/18 07:17 85 16 94 Room Air 21 11/09/18 07:16 85 16 96 Room Air 21 11/09/18 04:00 99.1 99 19 134/99 (111) 95 11/09/18 03:54 95 11/09/18 03:37 Room Air 21 11/09/18 03:36 Room Air 21 11/09/18 00:38 Room Air 21 11/09/18 00:36 Room Air 21 11/09/18 00:00 99.7 101 20 136/101 (113) 96 11/08/18 23:45 97 11/08/18 22:20 98.1 114 24 128/95 (106) 94 11/08/18 22:16 Room Air 11/08/18 21:50 98.0 101 22 158/68 98 Room Air 11/08/18 20:37 152/80 11/08/18 20:00 98.8 105 18 128/76 94 Room Air 11/08/18 20:00 107 18 Room Air 11/08/18 19:55 99.1 107 18 128/76 (93) 94 Room Air Laboratory Tests Test 11/08/18 20:30 11/09/18 06:14 White Blood Count 11.1 K/UL (4.8-10.8) H 9.9 K/UL (4.8-10.8) Red Blood Count 4.53 M/UL (4.20-5.40) 4.24 M/UL (4.20-5.40) Hemoglobin 12.8 G/DL (12.0-16.0) 12.0 G/DL (12.0-16.0) Hematocrit 37.2 % (37.0-47.0) 36.5 % (37.0-47.0) L Mean Corpuscular Volume 82 FL (80-99) 86 FL (80-99) Mean Corpuscular Hemoglobin 28.2 PG (27.0-31.0) 28.4 PG (27.0-31.0) Mean Corpuscular Hemoglobin Concent 34.3 G/DL (32.0-36.0) 33.0 G/DL (32.0-36.0) Red Cell Distribution Width 12.5 % (11.6-14.8) 13.2 % (11.6-14.8) Platelet Count 410 K/UL (150-450) 381 K/UL (150-450) Mean Platelet Volume 6.0 FL (6.5-10.1) L 7.2 FL (6.5-10.1) Neutrophils (%) (Auto) 65.7 % (45.0-75.0) 67.6 % (45.0-75.0) Lymphocytes (%) (Auto) 25.7 % (20.0-45.0) 23.2 % (20.0-45.0) Monocytes (%) (Auto) 5.9 % (1.0-10.0) 6.2 % (1.0-10.0) Eosinophils (%) (Auto) 1.3 % (0.0-3.0) 1.5 % (0.0-3.0) Basophils (%) (Auto) 1.4 % (0.0-2.0) 1.6 % (0.0-2.0) Sodium Level 137 MMOL/L (136-145) Potassium Level 4.5 MMOL/L (3.5-5.1) Chloride Level 100 MMOL/L (98-107) Carbon Dioxide Level 29 MMOL/L (21-32) Anion Gap 8 mmol/L (5-15) Blood Urea Nitrogen 23 mg/dL (7-18) H Creatinine 1.2 MG/DL (0.55-1.30) Estimat Glomerular Filtration Rate 58.9 mL/min (>60) Glucose Level 113 MG/DL (74-106) H Calcium Level 9.4 MG/DL (8.5-10.1) Total Bilirubin 0.4 MG/DL (0.2-1.0) Aspartate Amino Transf (AST/SGOT) 28 U/L (15-37) Alanine Aminotransferase (ALT/SGPT) 31 U/L (12-78) Alkaline Phosphatase 81 U/L (46-116) Troponin I 0.000 ng/mL (0.000-0.056) 0.000 ng/mL (0.000-0.056) Pro-B-Type Natriuretic Peptide 149 pg/mL (0-125) H Total Protein 8.5 G/DL (6.4-8.2) H Albumin 3.3 G/DL (3.4-5.0) L Globulin 5.2 g/dL Albumin/Globulin Ratio 0.6 (1.0-2.7) L Prothrombin Time 10.0 SEC (9.30-11.50) Prothromb Time International Ratio 0.9 (0.9-1.1) Activated Partial Thromboplast Time 30 SEC (23-33) C-Reactive Protein, Quantitative 6.5 mg/dL (0.00-0.90) H Triglycerides Level 63 MG/DL (30-150) Cholesterol Level 182 MG/DL (< 200) LDL Cholesterol 95 mg/dL (<100) HDL Cholesterol 79 MG/DL (40-60) H Cholesterol/HDL Ratio 2.3 (3.3-4.4) L Thyroid Stimulating Hormone (TSH) 2.995 uiU/mL (0.358-3.740) Microbiology Date/Time Source Procedure Growth Status 11/09/18 06:40 Rectal Mucosa Received Devan Ruiz MD November 09, 2018 11:54
[2018-11-09] MEDS ORDERED: Lexiscan 0.4mg/5ml syringe IV PRN (11:57)
[2018-11-09 12:00] VITALS: BP 163/84
--- NOTE | 2018-11-09 14:38 | History & Physical ---
History and Physical History & Physicial Jeancarlos Beckman MD November 09, 2018 14:38
--- NOTE | 2018-11-09 15:06 | Cardiology Report ---
APPROVED REPORT EXAM: Two-dimensional and M-mode echocardiogram with Doppler and color Doppler. INDICATION Left Ventricular Function M-Mode DIMENSIONS IVSd1.4 (0.7-1.1cm)Left Atrium (MM)4.3 (1.6-4.0cm) LVDd5.3 (3.5-5.6cm)Aortic Root2.6 (2.0-3.7cm) PWd1.4 (0.7-1.1cm)Aortic Cusp Exc.1.6 (1.5-2.0cm) LVDs3.9 (2.5-4.0cm) PWs2.2 cm Technically difficult study due to agitated patient. Study quality precludes accurate assessment of regional wall motion. Normal left ventricular chamber size, systolic function and wall motion. Left ventricular ejection fraction estimated to be 60 %. Mild left ventricular hypertrophy. No evidence of pericardial effusion. Mild bi-atrial enlargement. Mild right ventricular enlargement. Focal aortic valve sclerosis with adequate cusp excursion. Thickened mitral valve leaflets with normal excursion. Mild mitral annulus and aortic root calcification. Pulmonic valve not well visualized. Normal tricuspid valve structure. IVC is normal in size with physiological collapse. A color flow and spectral Doppler study was performed and revealed: Trace aortic insufficiency. Mild mitral regurgitation. Mitral diastolic velocities suggest mild left ventricular diastolic dysfunction (Grade I). Mild tricuspid regurgitation. Tricuspid systolic velocities suggests peak right ventricular systolic pressure of 44 mmHg, consistent with mild pulmonary hypertension. Trace pulmonic regurgitation present.
[2018-11-09 16:23] VITALS: BP 140/77
--- NOTE | 2018-11-09 16:51 | NUR ---
NURSE NOTES: patient discharged with all her belonging as ordered. vital signs stable.no c/o pain.
--- NOTE | 2018-11-09 18:31 | Consultation ---
DATE OF CONSULTATION: 11/09/2018 CARDIOLOGY CONSULTATION CONSULTING PHYSICIAN: Devan Ruiz M.D. REFERRING PHYSICIAN: Jeancarlos Beckman M.D. REASON FOR CONSULTATION: Chest pain. HISTORY OF PRESENT ILLNESS: The patient is a 43-year-old lady with history of morbid obesity and congestive heart failure, hypertension, has been noncompliant for medications since June. The patient recently moved to follows with doctors over there. The patient presented to the emergency room with chest pain, took 3 nitroglycerin without any relief. She denied any shortness of breath, nausea, vomiting, diaphoresis, or syncope. The patient also has been doing cocaine recently. The patient was admitted and a Cardiology consultation was obtained for further evaluation and management. REVIEW OF SYSTEMS: Review of systems was negative other than what is mentioned in the history of present illness. PAST MEDICAL HISTORY: 1. Hypertension. 2. Obesity. 3. Congestive heart failure. 4. Asthma. 5. Breast cancer. FAMILY HISTORY: Noncontributory. SOCIAL HISTORY: She lives in [place], smokes and uses cocaine. PHYSICAL EXAMINATION: VITAL SIGNS: Show blood pressure 159/96, pulse is 82, respirations 18, and she is afebrile. HEAD AND NECK: No JVD. LUNGS: Coarse rhonchi. CARDIOVASCULAR: Regular S1 and S2 with no gallop or murmur. ABDOMEN: Soft. EXTREMITIES: No pitting edema. LABORATORY AND DIAGNOSTIC DATA: Echocardiogram showed normal left ventricular systolic function with ejection fraction of 60%. Her EKG showed sinus rhythm with nonspecific ST-T wave abnormalities. Labs show white count of 9.9, hemoglobin of 12, hematocrit 36, and platelet count is 381. Sodium 137, potassium 4.5, BUN of 23, creatinine 1.2. Troponin negative x2. ASSESSMENT AND PLAN: 1. Atypical chest pain. EKG does not have any acute ischemic changes. Troponins are negative x2. We will schedule the patient for a dobutamine echocardiogram for further evaluation and management. 2. Hypertension, on p.r.n. antihypertensives. Continue Lasix 40 mg daily. Avoid beta-mahendra in view of cocaine use. 3. History of breast cancer. 4. History of psychosis and bipolar disorder on Abilify, Seroquel, and Desyrel. Thank you very much, Dr. Beckman, for allowing me to participate in the care of this patient. Please do not hesitate to contact me for any questions regarding my evaluation. Sincerely, Devan Ruiz M.D. DR: Greyson JOB#: [id number] CC:
--- NOTE | 2018-11-09 18:45 | History and Physical Report ---
DATE OF ADMISSION: 11/08/2018 CHIEF COMPLAINT: Chest pain. HISTORY OF PRESENT ILLNESS: This is a 43-year-old morbidly obese female with past medical history significant for schizophrenia disorder, who has presented to the hospital complaining about chest pain. The patient has had chest pains mostly in the retrosternal area radiated to the left breast. Denies any associated nausea or vomiting. Denies any hemoptysis or hematochezia. The patient was recently admitted to [facility] with chest pain, was advised to have a stress test, however, she signed against medical advice and left the hospital and in 2015, had a serial cardiac enzymes that was negative, was advised to have a stress test done, however, at that time, the patient declined a stress test and considered to be done as outpatient. PAST MEDICAL HISTORY/PAST SURGICAL HISTORY: Significant for hypertension, major depression, schizophrenia, left ovarian cyst, ectopic , and tubal ligation. MEDICATIONS AT HOME: Please refer to medication reconciliation. ALLERGIES: Penicillin. SOCIAL HISTORY: The patient is single. Disabled. She currently smokes 1/4 pack per day. Denies any alcohol abuse or substance abuse. FAMILY HISTORY: Noncontributory. REVIEW OF SYSTEMS: Mostly as above. Denies any dysuria, frequency, or hematuria. Denies any hemoptysis or hematochezia. Denies any suicidal or homicidal ideation. Denies any loss of consciousness. Denies any double vision. Complained about chest pain. PHYSICAL EXAMINATION: VITAL SIGNS: On admission from the ER, temperature 99.1, pulse of 107, respirations 18, and blood pressure 128/76. GENERAL: The patient is awake, responsive, and in no acute distress. HEAD AND NECK: Pupils are reactive to light. Extraocular movements intact. Neck was supple. No JVD. LUNGS: Good air entry. No wheezing or rales. Decreased air in bases. HEART: Reveals S1, S2. Distant heart sounds. No murmur or gallops. ABDOMEN: Soft, nondistended, and nontender. Morbidly obese. EXTREMITIES: No cyanosis, clubbing, or edema. NEUROLOGIC: Cranial nerves II to XII grossly intact. Motor is 5/5 in all extremities. Gait is intact. RECTAL/GENITOURINARY: Refused and deferred. PSYCHIATRIC: Mood and affect is intact. LABORATORY DATA: On admission, WBC of 11, hemoglobin of 12, hematocrit of 37, and platelets is 410,000. Sodium 137, potassium 4.5, chloride 100, bicarbonate 29, BUN 23, creatinine 1.2, and glucose is 113. First and second troponin 0.00. C-reactive protein 6.5. ProBNP of 149. PT of 10, INR 0.9, and PTT of 30. The patient had a chest x-ray, no acute findings. ASSESSMENT: 1. Atypical chest pain. 2. Hypertension. 3. Morbid obesity. 4. History of psychiatric disorder including schizophrenia and depression. PLAN: 1. Admit the patient to telemetry. 2. We discussed with the patient with regard to have a stress test today. Again, she declined to have a stress test. I advised the patient she may go home to have a stress test as outpatient. Follow up with her primary doctor within one week. 3. Throughout the hospital course, the patient was followed by Dr. Sanford, Pulmonary Critical Care and Dr. Ruiz from Cardiology. Jeancarlos Beckman M.D. DR: PAULA JOB#: [id number] CC:
--- NOTE | 2018-11-10 07:14 | Discharge Summary ---
Discharge Summary Discharge Summary _ DATE OF ADMISSION: 11/08/2018 DATE OF DISCHARGE: 11/09/2018 DISCHARGED BY: Dr. Jeancarlos Beckman CONSULTANTS: Dr. Devan Sanford he BRIEF HOSPITAL COURSE: Patient is a 43-year-old, morbidly obese female, with past medical history significant for congestive heart failure, schizophrenia disorder, hypertension, depression and breast cancer, who presented to the hospital because of chest pain. The patient had chest pains mostly in the retrosternal area and radiated to the left breast. She denied any nausea or vomiting. Denied any hemoptysis or hematochezia. She had been noncompliant with her medications. Chest pain started in the morning of admission. She took 3 nitroglycerin with no relief. She stated chest pain eventually went away prior to arrival. She admitted to [facility] [employer] recently. The patient was admitted to [facility] in 2015 due to chest pain, and was advised to have a stress test, however, she signed out AGAINST MEDICAL ADVICE. On evaluation at ED, vital signs were stable. Initial troponin was negative. EKG done showed normal sinus rhythm with no acute changes. Due to her risk factors, she was admitted for evaluation of chest pain. She was admitted to telemetry. Cardiac enzymes were monitored. Throughout the hospital course, patient was followed by Dr. Sanford and Dr. Ruiz. She was given Lasix. She was placed on antiplatelet therapy. She was continued on Abilify. She refused to take Seroquel and Desyrel. Echocardiogram done showed EF 60%. Pulmonary pressure of 44. She was offered stress test, however patient refused. Troponin levels were negative. Vital signs were stable. She was eventually discharged home. FINAL DIAGNOSES: Atypical chest pain Or tension Morbid obesity Psychiatric disorder including schizophrenia and depression DISPOSITION: Patient was discharged home. DISCHARGE MEDICATIONS: Refer to Discharge Medication List. DISCHARGE INSTRUCTIONS: Follow-up in a week. I have been assigned to complete a discharge summary on this account, I was not involved with the patient's management. Becca Murrieat NP November 10, 2018 07:14
--- NOTE | 2018-11-12 14:57 | Cardiology Report ---
APPROVED REPORT EKG Measurement Heart [id number] Normal sinus rhythm Nonspecific ST and T wave abnormality Prolonged QT Abnormal ECG
--- NOTE | 2018-11-16 11:45 | Physician Query ---
Clarification is required for compliance, coding accuracy, and to reflect severity of illness for this patient Dear Dr. DEE Date: 11/16/2018 Choral Director/CDS' Name: RAJAT BUSTILLOS FINAL DIAGNOSES: Atypical chest pain or tension Morbid obesity Psychiatric disorder including schizophrenia and depression On evaluation at ED, vital signs were stable. Initial troponin was negative. EKG done showed normal sinus rhythm with no acute changes. Due to her risk factors, she was admitted for evaluation of chest pain. She was admitted to telemetry. Cardiac enzymes were monitored. Throughout the hospital course, patient was followed by Dr. Sanford and Dr. Ruiz. She was given Lasix. She was placed on antiplatelet therapy. She was continued on Abilify. She refused to take Seroquel and Desyrel. Echocardiogram done showed EF 60%. Pulmonary pressure of 44. EKG: NSR TROPONIN: NEGATIVE Please document the suspected etiology of Chest Pain: [] Aortic dissection [] Acute myocardial infarction [x] Acute Coronary Syndrome [] Pericarditis [] Anxiety [] Cancer [] Pneumonia [] Costochondritis [] Pneumothorax [] GERD/Esophagitis [] Pulmonary embolism [] Other: [] Unable to determine REZA DEE M.D. Date & Time Please also document in your Progress Notes and/or Discharge Summary and indicate if the condition was present on admission. SOREN
--- NOTE | 2018-11-18 14:25 | NUR ---
CASE MANAGEMENT: CM review and clinical information (face sheet/ DC Summary/ ER MD notes/ H&P) faxed to [facility] @ [phone]/ [phone].T: [id number]
== END 2018-11-09 16:45 | disposition home or self-care (01) | DRG 198 ==
LOC: EMR 20:26 → 2E 21:35 → OBSVTOIN 21:41 → EDBEDREQ 21:43
DX: I24.9 Acute ischemic heart disease, unspecified (principal); E66.01 Morbid (severe) obesity due to excess calories; Z68.43 Body mass index [BMI] 50.0-59.9, adult; E66.9 Obesity, unspecified; F17.200 Nicotine dependence, unspecified, uncomplicated; F20.9 Schizophrenia, unspecified; F32.9 Major depressive disorder, single episode, unspecified; Z88.0 Allergy status to penicillin; Z85.3 Personal history of malignant neoplasm of breast; F14.10 Cocaine abuse, uncomplicated
CPT/HCPCS: 36415; 71045; 80053; 80061; 83880; 84443; 84484; 85025; 85610; 85730; 86140; 87081; 93005; 93306; 94640; 94664; 99285

== ENCOUNTER 2018-11-24 10:19 | Emergency (ER) | payer MEDICAID ==
[~2018-11-24] VITALS: Ht 164.1 cm; Wt 142.9 kg
[2018-11-24] MEDS ORDERED: UNOBMED (10:25)
[2018-11-24 10:30] VITALS: BP 128/75
--- NOTE | 2018-11-24 10:30 | NUR ---
ED Nurse Note: PT FROM HOME CAME IN DUE TO SOB AND STERNAL CP SINCE YESTERDAY. HX OF CHF. NOTED INCREASED EFFORT IN BREATHING AND INTERMITTENT COUGHING. VSS. PT IS AAO X4, AMBULATORY WITH SOB AT REST. PT WITH BILATERAL NON PITTING EDEMA ON BLE.
[2018-11-24] MEDS ORDERED: Furosemide 40mg tab ORAL ONE (10:45)
[2018-11-24] MEDS ORDERED: Levalbuterol Inh UD 1.25mg/0.5ml HHN ONE (10:45)
--- NOTE | 2018-11-24 10:55 | NUR ---
ED Nurse Note: RDAIOLOGY TECH AT THE BED SIDE FOR CXR.
--- NOTE | 2018-11-24 11:13 | NUR ---
ED Nurse Note: RT AT THE BED SIDE FOR BREATHING TREATMENT.
--- NOTE | 2018-11-24 11:24 | Diagnostic Imaging Report ---
EXAM: XR Chest, 1 View CLINICAL HISTORY: SOB TECHNIQUE: Frontal view of the chest. COMPARISON: Chest radiograph on 11/08/2018 FINDINGS: Hardware: None. Lungs/pleura: Low lung volumes. Bibasilar atelectasis. No focal consolidation. No pleural effusion or pneumothorax. Heart/mediastinum: Stable mild enlargement of the cardiac silhouette. Soft tissues: Unremarkable. Bones: No acute fracture. Generative changes of the acromioclavicular joints and spine. Upper abdomen: Normal. IMPRESSION: Low lung volumes. Bibasilar atelectasis.
[2018-11-24] MEDS ORDERED: ALBUTEROL SULF8.5 GM INH (12:04)
[2018-11-24] MEDS ORDERED: FUROSEMIDE40 MG ORAL (12:04)
[2018-11-24 12:14] VITALS: BP 144/74
--- NOTE | 2018-11-24 12:14 | NUR ---
ER DISCHARGE NOTE: Patient is cleared to be discharged per ERMD, pt is aox4, on room air, with stable vital signs. pt was given dc and prescription instructions, pt was able to verbalize understanding, pt id band removed. pt is able to ambulate with steady gait. pt took all belongings.
--- NOTE | 2018-11-24 13:34 | Emergency Room Report ---
History of Present Illness General Chief Complaint: Dyspnea/Respdistress Source: Medical Record Present Illness HPI Patient presents with shortness of breath Reports that she has not been able to take her medications she was taking care of her sick mom Patient has CHF and other comorbidities Reports that her shortness of breath has been worsening over the past several days also increased cough denies any pleurisy or chest pain Allergies: Coded Allergies: GABAPENTIN (Verified Allergy, Unknown, 11/24/18) PENICILLINS (Verified Allergy, Unknown, 09/23/15) Patient History Past Medical History: see triage record Pertinent Family History: none Last Menstrual Period: 2004 Reviewed Nursing Documentation: PMH: Agreed; PSxH: Agreed Nursing Documentation-PMH Past Medical History: No History, Except For Hx Cardiac Problems: Yes - CHF Hx Hypertension: Yes Hx Asthma: Yes Hx Cancer: Yes - BREAST CANCER Hx Gastrointestinal Problems: No Hx Neurological Problems: No Review of Systems All Other Systems: negative except mentioned in HPI Physical Exam Vital Signs Date Time Temp Pulse Resp B/P (MAP) Pulse Ox O2 Delivery O2 Flow Rate FiO2 11/24/18 10:20 98.2 96 16 137/79 (98) 95 Room Air 11/24/18 11:11 21 Sp02 EP Interpretation: reviewed, normal General Appearance: well appearing, no apparent distress Head: normocephalic, atraumatic Eyes: bilateral eye PERRL, bilateral eye EOMI ENT: hearing grossly normal, normal pharynx, TMs + canals normal, uvula midline Neck: full range of motion, supple, no meningismus, no bony tend Respiratory: no rhonchi, no respiratory distress, no retraction, no accessory muscle use, crackles - Fine crackles bilaterally Cardiovascular #1: normal peripheral pulses, regular rate, rhythm, no edema, no gallop, no JVD, no murmur Gastrointestinal: normal bowel sounds, non tender, soft, no mass, no organomegaly, non-distended, no guarding, no hernia, no pulsatile mass, no rebound Genitourinary: no CVA tenderness Musculoskeletal: normal inspection Neurologic: oriented x3, 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, 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, motor strength/ tone normal, sensory intact Psychiatric: mood/affect normal Skin: warm/dry, palpation normal, other - Some dependent edema bilaterally Lymphatic: normal inspection, no adenopathy Medical Decision Making Diagnostic Impression: Primary Impression: uri Additional Impression: cough ER Course Patient is a fairly complex patient with multiple differential to consideration including but not limited to cardiac cardiopulmonary and vascular emergencies Patient otherwise having appropriate respirations I did recall seeing the patient previously she has had previous admission X-ray today does not show any acute change Mild congestion patient observed and reevaluated Requires improved outpatient care and is disposition for close follow-up Rhythm Strip Diag. Results EP Interpretation: yes Rate: 67 Rhythm: NSR, no PVC's, no ectopy Chest X-Ray Diagnostic Results Chest X-Ray Diagnostic Results : Chest X-Ray Ordered: Yes # of Views/Limited/Complete: 1 View Indication: Shortness of Breath EP Interpretation: Yes Interpretation: no consolidation, no effusion, no pneumothorax, other - mild congestion Impression: No acute disease - Mild congestion Electronically Signed by: Dashawn Mcdermott DO Last Vital Signs Date Time Temp Pulse Resp B/P (MAP) Pulse Ox O2 Delivery O2 Flow Rate FiO2 11/24/18 12:14 98.2 100 18 144/74 98 Room Air 11/24/18 11:22 21 Status: improved Disposition: HOME, SELF-CARE Condition: Improved Scripts Albuterol Sulfate* (ALBUTEROL SULFATE MDI*) 8.5 Gm Hfa.aer.ad 2 PUFF INH Q6H, #1 EA 0 Refills Prov: Dashawn Mcdermott DO 11/24/18 Furosemide* (LASIX*) 40 Mg Tablet 40 MG ORAL DAILY, #20 TAB Prov: Dashawn Mcdermott DO 11/24/18 Referrals: NON PHYSICIAN (PCP) [facility] Arnie Hannah [facility] Patient Instructions: Cough, Adult, [id number] Additional Instructions: Patient is provided with the discharge instructions notified to follow up with primary doctor in the next 2-3 days otherwise return to the er with any worsening symptoms. Please note that this report is being documented using ioBridge technology. This can lead to erroneous entry secondary to incorrect interpretation by the dictating instrument. Dashawn Mcdermott DO Nov 24, 2018 13:34
== END 2018-11-24 12:15 | disposition home or self-care (01) ==
LOC: EMR 12:10
DX: J06.9 Acute upper respiratory infection, unspecified (principal); R05 Cough; Z88.0 Allergy status to penicillin; Z85.3 Personal history of malignant neoplasm of breast; I11.0 Hypertensive heart disease with heart failure; I50.9 Heart failure, unspecified
CPT/HCPCS: 71045; 94640; 94664; 99283; J7644